=== PATIENT | female | born 1940 | race African-American/Black ===

== ENCOUNTER 2017-11-23 13:37 | Inpatient (IN) | payer OTHER, BC ==
[~2017-11-23] VITALS: Ht 154.9 cm; Wt 76.7 kg
--- NOTE | ~2017-11-23 | EKG ---
[place] [address] [facility] [employer] [facility] [place] [address] ELECTROCARDIOGRAM REPORT Name: ROD PARRA Room #: 431-P ADM IN M.R.#: [id number] Admission: 11/23/17 Attend Phys: Haile Martel DO Discharge: Date of : 42 Report #: [id number] THIS REPORT FOR: //name// [facility] ED Test Date: 2017-11-23 Test Time: 14:13:54 Pat Name: ROD PARRA Department: Room: 431 Gender: F Server Manager: MIGEL : 1940 Requested By: Avani Mckee Order Number: [id number] MD: Ousmane June Measurements Intervals [place] Rate: 93 P: 37 WY: 177 QRS: -44 QRSD: 95 T: 23 QT: 358 QTc: 446 Interpretive Statements Sinus rhythm Inferior infarct, old Poor R wave progression Compared to ECG 11/19/2015 20:08:52 No significant change was found Electronically Signed On 11-24-2017 9:41:32 CDT by Ousmane June [email or web address] <ELECTRONICALLY SIGNED> By: Ousmane June MD, [facility] 11/24/17 0941 141 141 Ousmane June MD, [facility] /EPI
--- NOTE | ~2017-11-23 | HC ---
[facility] [place] [address] CONSULTATION Name: ROD PARRA Room #: 431-P ADM IN .R.#: [id number] Admission: 11/23/17 Attend Phys: Haile Martel DO Discharge: Date of : 42 Report #: [id number] THIS REPORT FOR: //name// CC: Haile JACOBO PCP DATE OF SERVICE: 11/23/2017 REFERRING PROVIDER: Haile Martel DO. REASON FOR CONSULT: Abdominal pain. HISTORY OF PRESENT ILLNESS: The patient is a 77-year-old -[place] Citizen female who presented with abdominal pain, nausea, mid back pain and fevers to 102 degrees that all began around 4:00 a.m. this morning. Upon further questioning, the patient states that her abdominal pain really began yesterday and was associated with nausea. She does have a past history of atrial fibrillation for which she is on Xarelto, having taken her most recent dose last evening around midnight. Workup in the emergency room in the form of laboratories and a CT scan of the abdomen and pelvis was performed and she does have a left shift with a normal white blood cell count showing 89% neutrophils as well as showing elevated liver function enzymes with a bilirubin of 2.8, AST of 380 and ALT of 288. Her lipase is normal at 373. Her CT scan shows no acute process. The patient is therefore being admitted for abdominal pain and elevated liver function enzymes with concerns for biliary obstruction and I am asked to evaluate. PAST MEDICAL HISTORY: Atrial fibrillation, chronic back and left hip pain, and hypothyroidism. HOME MEDICATIONS: Xarelto, Synthroid, Percocet, Bumex and Ambien. ALLERGIES: No known drug allergies. SOCIAL HISTORY: The patient does not utilize tobacco, alcohol or illicit drugs. FAMILY HISTORY: Reviewed and noncontributory. REVIEW OF SYSTEMS: GENERAL: The patient states positive fevers and chills. HEENT: No change in vision, change in hearing. NECK: No swelling or difficulty swallowing. HEART: No chest pain or palpitations. LUNGS: No cough or shortness of breath. ABDOMEN: Abdominal pain with nausea, but no vomiting. GENITOURINARY: No dysuria or hematuria. [facility] [address] [place] [address] CONSULTATION Name: ROD PARRA Room #: 431-P [facility] IN .R.#: [id number] Admission: 11/23/17 Attend Phys: Haile Martel DO Discharge: Date of : 42 Report #: [id number] ENDOCRINE: No polyuria, polydipsia. HEMATOLOGIC: No history of bleeding or easy bruising. EXTREMITIES: No history weakness or limited range of motion. NEUROLOGIC: No history of syncope or near syncopal episodes. SKIN AND INTEGUMENT: No history of abnormal lesions or moles. PSYCHIATRIC: No history of anxiety or depression. PHYSICAL EXAMINATION: VITAL SIGNS: Temperature 37.2 down from 38.1 upon admission, pulse 98, respirations 18, blood pressure 168/86. GENERAL: She is alert, in no acute distress. HEENT: Normocephalic, atraumatic. Pupils are equal, round, reactive to light. NECK: Supple, without lymphadenopathy. Trachea midline. HEART: Tachycardic, but regular rhythm. LUNGS: Clear to auscultation bilaterally. ABDOMEN: Soft, nondistended. She is tender to palpation in the right upper quadrant and epigastrium without significant guarding, rebound or peritoneal signs or symptoms. GENITOURINARY: Normal external female genitalia. EXTREMITIES: No clubbing, cyanosis or edema. NEUROLOGIC: Cranial nerves 2-12 are grossly intact. PSYCHIATRIC: Normal mood and affect. SKIN AND INTEGUMENT: No abnormal lesions or moles. LABORATORY AND X-RAY DATA: CBC shows white blood cell count of 8800, hemoglobin 13.4, platelets 263,000. She does have a left shift of 89% neutrophils. Her creatinine is normal at 1.1, but her liver function enzymes are markedly elevated with a bilirubin of 2.8, AST 380, ALT 288, alkaline phosphatase 135 and a lipase is normal at 373. Her lactic acid is normal at 1.7 as well and her troponins are negative. Urinalysis is negative. CT scan of the abdomen and pelvis as per HPI shows no acute inflammatory process intraabdominally. ASSESSMENT AND PLAN: A 77-year-old -[place] Citizen female with elevated liver function enzymes, abdominal pain and mid back pain that began at 4:00 a.m. this morning after having nonspecific abdominal pain all day yesterday. On workup, her CT scan shows no acute intra-abdominal process including no ductal dilatation. I will obtain an ultrasound of the abdomen at this time as it is more specific for gallbladder disease and biliary dilatation and will ask for a GI consult as the patient may necessitate an ERCP at some point as I suspect she likely passed a stone and this may be early in the overall course of cholangitis. The patient did take Xarelto last evening and I recommend holding this until we have completed our workup and any interventions necessary. I will also order an MRCP at this time. [address] [address] CONSULTATION Name: ROD PARRA Room #: 431-P ADM IN M.R.#: [id number] Admission: 11/23/17 Attend Phys: Haile Martel DO Discharge: Date of : 42 Report #: [id number] I sincerely appreciate this consult. I will follow closely and leave any further recommendations in the patient's chart as appropriate. <ELECTRONICALLY SIGNED> By: Laisha Ernandez MD, FACS 11/24/17 0743 1710 1937 Laisha Ernandez MD, FACS /nt
--- NOTE | ~2017-11-23 | O ---
[facility] [place] [facility] [place] [address] OPERATIVE REPORT Name: ROD PARRA Room #: 431-P [facility] IN ..#: [id number] Admission: 11/23/17 Attend Phys: Haile Martel DO Discharge: Date of : 42 Report #: [id number] THIS REPORT FOR: //name// CC: Haile Martel NO PCP DATE OF SERVICE: 11/26/2017 PREOPERATIVE DIAGNOSES: 1. Acute cholecystitis. 2. Cholelithiasis. 3. Recent choledocholithiasis, now status post endoscopic retrograde cholangiopancreatography with sphincterotomy. POSTOPERATIVE DIAGNOSES: 1. Acute cholecystitis. 2. Cholelithiasis. 3. Recent choledocholithiasis, now status post endoscopic retrograde cholangiopancreatography with sphincterotomy. 4. Incarcerated umbilical hernia. PROCEDURES PERFORMED: 1. Laparoscopic cholecystectomy with intraoperative cholangiogram. 2. Laparoscopic reduction with primary suture repair of an incarcerated umbilical hernia defect. SURGEON: Laisha Ernandez M.D. CIVIL SERVICE CLERK: Joshua Paul M.D. ANESTHESIA: General endotracheal anesthesia. ESTIMATED BLOOD LOSS: Minimal (less than 5 mL). COMPLICATIONS: None appreciated. SPECIMENS: Gallbladder to pathology. INDICATIONS: The patient is a 77-year-old -[place] female who was recently admitted with severe abdominal pain and nausea, where she was found to have a markedly elevated bilirubin as well as an MRCP showing a distal common bile duct filling defect and ultrasound showing acute cholecystitis. The patient underwent ERCP with decompression of her biliary tree and her bilirubin came down to a normal level of 1.0. The patient did have mild post-ERCP pancreatitis with a lipase of about 800 and epigastric pain, which has completely resolved with normalization of her lipase today. As such, indication [facility] [address] [place] [address] OPERATIVE REPORT Name: AIDAROD Oskar Room #: 431-P [facility] IN ..#: [id number] Admission: 11/23/17 Attend Phys: Haile Martel DO Discharge: Date of : 42 Report #: [id number] was for laparoscopic cholecystectomy for definitive surgical management with intraoperative findings of an incarcerated umbilical hernia requiring suture repair as well. DESCRIPTION OF PROCEDURE: After explaining the risks, benefits and alternatives of the procedure with the patient in detail in the preoperative holding area and obtaining written consent, the patient was brought to the operating room and placed supine on the operating room table. After conducting a thorough timeout procedure verifying correct patient and procedure, the patient was given general endotracheal anesthesia. Once adequate anesthesia was attained, her SCDs were hooked up to pneumatic compression device. She was given a preoperative dose of antibiotics in line with the SCIP protocol. The patient's abdomen was prepped and draped in standard surgical sterile fashion. A 5 mL of 0.5% Marcaine with epinephrine were used to anesthetize the skin in the supraumbilical location. A #15 bladed scalpel was used to create a 1 cm transverse skin incision at this location. A 11 mm Visiport was placed over 0 degree 5 mm laparoscope and was introduced through this incision site. Once intra-abdominal placement was verified visually, the obturator for the trocar and laparoscope were both removed and the abdomen was insufflated to 15 mmHg using carbon dioxide gas. The laparoscope was changed to a 10 mm 30-degree laparoscope, which was reintroduced through this trocar. The entire abdomen was evaluated to ensure no injury upon entry. We now placed the patient in steep reverse Trendelenburg with right side elevated and I placed three additional 5 mm ports. One was placed in subxiphoid location and two were placed along the patient's right subcostal margin. All three additional ports were placed under direct vision after anesthetizing the skin at each location with 5 mL of 0.5% Marcaine with epinephrine and I created appropriately sized skin nicks using a #15 bladed scalpel. The patient had a considerable amount of bile-stained ascites, which were suctioned out with a suction examination proctor device. Using the inferolateral most port along the patient's right flank, the fundus of the gallbladder was grasped and retracted cephalad. Careful tedious dissection was now undertaken down around the cholecystocystic junction using combination of Harmonic scalpel and [place] dissector. Once I had attained a critical view, namely the cystic duct emanating from the infundibulum of the gallbladder and coursing the common bile duct as well as cystic artery running at the surface of the gallbladder and I had created a window behind each, I transected the cystic artery nearest to the gallbladder side using Harmonic scalpel for long-term hemostasis. A single clip was now placed along the cystic duct nearest to the gallbladder side and a small ductotomy was made just distal to this clip using EndoShears. This ductotomy was cannulated using the taut cholangiocatheter setup and an intraoperative cholangiogram was obtained. We had prompt opacification of a tortuous cystic duct with both intra and extrahepatic bile ducts becoming opacified. There was antegrade flow of contrast in the duodenum with no evidence of filling defects or obstruction. The cholangiocatheter setup was now removed. Three clips were placed along the cystic duct nearest to the common bile duct side and it was transected above these clips using Harmonic scalpel to [facility] [address] [place] [address] OPERATIVE REPORT Name: ROD PARRA Room #: 431-P [facility] IN ..#: [id number] Admission: 11/23/17 Attend Phys: Haile Martel DO Discharge: Date of : 42 Report #: [id number] help seal the end of the duct closed. Further retraction at the infundibulum of the gallbladder in cephalad direction allowed me to elevate the gallbladder off the liver bed using a combination of Harmonic scalpel and hook electrocautery. Once completely detached, the laparoscope was removed, changed to a 5-mm 30-degree laparoscope, which was reintroduced through the right midclavicular 5 mm port. The EndoCatch bag was placed in the supraumbilical trocar and the specimen was placed within it under direct vision. Pursestring suture was drawn and specimen was removed from the abdomen under direct vision. At this juncture, we saw incarcerated omentum contained within the umbilical hernia inferior to my supraumbilical trocar. This was reduced with Harmonic scalpel as well. Now that the specimen had been delivered out of the abdomen, I used the Dinesh-Mishel suture passer device and a [address] a xezhyp-ip-foffm fascial closing suture around the hernia defect which incorporated the trocar fascial incision as well. This was tagged with a hemostat and trocars were placed under direct vision. The laparoscope was placed back in the supraumbilical trocar and the gallbladder fossa was evaluated. We had complete hemostasis, but as the patient's liver bed was slightly friable and she does take long-term anticoagulation, I did elect to place Wolfgang in the bed of the gallbladder fossa for long-term hemostasis. One final evaluation of the intra-abdominal domain showed no further evidence of pathology. The laparoscope was placed back in the right upper quadrant trocar and proceeded to tie down the supraumbilical 0 PDS suture under direct vision after reducing insufflation pressure to 5 mmHg to ensure I did not catch a loop of bowel or omentum in the suture repair. The abdomen was fully desufflated. All remaining trocars were removed under direct vision. A 4-0 Monocryl was used in a standard subcuticular fashion for all skin incisions and Dermabond glue was applied to all skin wounds. At the end of the procedure, all instrument, needle and sponge counts were correct. The patient tolerated the procedure without incident, was awakened in the operating room and transitioned to the recovery room in stable condition with no apparent complications. <ELECTRONICALLY SIGNED> By: Laisha Ernandez MD, FACS 11/27/17 0931 1621 1720 Laisha Ernandez MD, FACS /nt
--- NOTE | ~2017-11-23 | S ---
[facility] [place] [address] SURGICAL PATH RPT PROCEDURE Name: ELLE PARRA Room #: 431-P ADM IN M.R.#: [id number] Admission: 11/23/17 Date of : 42 Discharge: Report #: [id number] Path Case #: [id number] PATHOLOGY REPORT COLLECTION DATE: 11/26/2017 RECEIVED DATE: 11/26/2017 SUBMITTING PHYS: Dr. Laisha Ernandez OTHER PHYS: Dr. Haile Martel SPECIMEN(S) RECEIVED: A.Gallbladder * * * * * * * * * * * * FINAL DIAGNOSIS: "Gallbladder", cholecystectomy: - Acute necrotizing cholecystitis. - Cholelithiasis. (CLW:suzan; 11/27/2017) PATHOLOGIST: Sharon Guillory M.D. REPORT ELECTRONICALLY SIGNED BY: Sharon Guillory M.D. DATE/TIME: 11/27/2017 17:35 * * * * * * * * * * * * GROSS PATHOLOGY: Received in formalin labeled "Elle Parra, gallbladder," is a 11.0 x 4.9 x 2.6 cm, previously opened gallbladder with light martinez, wrinkled serosal surfaces. Opening the gallbladder reveals dark martinez, velvety mucosa and an average wall thickness of 0.2 cm. Calculi are present, measuring 0.4 cm in maximum dimension, possessing a dark black sludgy appearance, and feeling friable to the touch. No masses are noted grossly. Generation Technologist sections from the body and fundus are submitted along with the proximal margin in cassette A1. (TSD; 11/26/2017) CLINICAL HISTORY: Pre-OP DX: Pancreatitis Post-OP DX: Same plus umbilical hernia INITIAL CPT CODE(S): A; 53134 Professional services performed by [facility] at [facility] [address] , [place] [address] [facility] [address] [place] [address] SURGICAL PATH RPT PROCEDURE Name: ELLE PARRA Room #: 431-P ADM IN M.R.#: [id number] Admission: 11/23/17 Date of : 42 Discharge: Report #: [id number] Path Case #: [id number] Technical services performed by [facility] at [address] [place] [address], [facility] [address] [place] [address]. [facility] [address] [place] [address] PHONE: [phone] DIRECTOR: Bib Shields M.D. * * * END OF REPORT * * *
--- NOTE | ~2017-11-23 | P ---
[facility] [place] [address] PROCEDURE REPORT Name: ROD PARRA Room #: 431-P [facility] IN ..#: [id number] Admission: 11/23/17 Attend Phys: Haile Martel DO Discharge: Date of : 42 Report #: [id number] THIS REPORT FOR: //name// CC: Haile Ernandez MD NO PCP BRIEF HISTORY: The patient is a 77-year-old woman who presented with evidence of gallstones, also rising liver function studies with bilirubin up over 5 as well as rising white count, fever, and tachycardia. MRCP reveals a dilated duct and evidence of a distal common duct stone. PREOPERATIVE DIAGNOSES: Choledocholithiasis with cholangitis. POSTOPERATIVE DIAGNOSES: Choledocholithiasis, sludge and debris with cholangitis. MEDICATIONS: Intubation with general anesthesia. SPECIMEN: None. ESTIMATED BLOOD LOSS: None. PROCEDURE: ERCP with endoscopic sphincterotomy and balloon sweep and basket sweep of the common bile duct. FINDINGS: Prior to induction of general anesthesia, the procedure of ERCP, sphincterotomy, and stone extraction was discussed with the patient as well as all potential risks, benefits, and complications. She indicates she understands and desires to proceed. She was taken to the operating room and induced with general anesthesia and placed in the prone position. Subsequently, the Fuji side-viewing endoscope was inserted in cervical esophagus, advanced through the esophagus, stomach, across the pylorus, and duodenum, the loop of scope was withdrawn and the papilla was identified. The papilla appeared very normal. There was a small amount of yellow bile. The papilla was cannulated and advanced in the common bile duct. However, at the initial filling small amount of contrast in the pancreatic duct, that was only partially filled and we stopped injection. We removed the catheter and reinserted and advanced it deep into the extrahepatic ducts. No further filling of the pancreatic duct was encountered. Injection of contrast revealed a dilated duct, both common hepatic and common bile ducts. There was also noted to be flow of contrast into the cystic duct and gallbladder filled with stones. There was limited filling of the central intrahepatic ducts because of flow into the gallbladder. Obvious stone could not be seen, although one was reported on MRCP. Subsequently, a sphincterotomy was done without bleeding. We then used a 15-mm balloon and pulled it through on several [facility] [address] [place] [address] PROCEDURE REPORT Name: ROD PARRA Room #: 431-P [facility] IN M.R.#: [id number] Admission: 11/23/17 Attend Phys: Haile Martel DO Discharge: Date of : 42 Report #: [id number] and mostly clear bile came out, but some clumps of mucousy and whitish material, which looked somewhat purulent, were pulled out of the duct. No stones were retrieved. We then used a balloon to tamponade the bile duct above the cystic duct and there was filling in the central intra-hepatics which were not dilated. The common hepatic and common bile duct were dilated using balloon tamponade, we were able to fill the duct and not demonstrate any additional stones. Due to the concerns of a retained stone after multiple balloon sweeps, the balloon catheter was withdrawn and we advanced a 2-cm basket and made multiple sweeps through duct and we did not engage any stones or whatsoever. It was noted that some sludge material as well as mucus and purulent material came from the duct, but a large stone was not seen. It was felt the duct was clear and draining well. The scope was withdrawn. The patient tolerated the procedure well. DISPOSITION: ERCP with endoscopic sphincterotomy completed as described. Discussed with Dr. Ernandez, we will continue to monitor. She is to have cholecystectomy per Dr. Ernandez. <ELECTRONICALLY SIGNED> By: Gareth Matos MD 11/24/17 2032 1544 1826 Gareth Matos MD /nt
--- NOTE | ~2017-11-23 | HC ---
[facility] [place] [address] CONSULTATION Name: ROD PARRA Room #: 431-P [facility] IN ..#: [id number] Admission: 11/23/17 Attend Phys: Haile Martel DO Discharge: Date of : 42 Report #: [id number] THIS REPORT FOR: //name// CC: Haile JACOBO PCP DATE OF SERVICE: 11/24/2017 ATTENDING PHYSICIAN: Haile Martel DO. REASON FOR CONSULTATION: Bacteremia. Cholangitis. HISTORY OF PRESENT ILLNESS: A 77-year-old woman admitted through the Emergency Room with a history of abdominal pain and fevers. The patient tells me she has not been feeling well for a couple of weeks with some chronic back pain. Subsequently, the pain got bad enough and fever started that she needed to be evaluated in the Emergency Room. She is found to have elevation of bilirubin, abnormal liver function tests. Findings compatible with cholecystitis and possible acute cholangitis. She is on treatment with Zosyn. She may be slightly improving, wondering if her n.p.o. status will change anytime surely. PAST MEDICAL HISTORY: Left hip replacement in 2004, right total knee replacement, atrial fibrillation. Chronic back pain. DRUG ALLERGIES: None listed. MEDICATIONS: Zosyn 3.375 grams IV every 8 hours, zolpidem 10 mg at bedtime, enoxaparin 40 mg at bedtime, famotine 20 mg IV b.i.d., levothyroxine 25 mcg p.o. daily, polyethylene glycol 17 grams p.o. daily, sublingual nitroglycerin p.r.n., ondansetron IV p.r.n., fentanyl 50 mcg q.3h. p.r.n., potassium chloride supplementation per protocol. SOCIAL HISTORY: Five children. No tobacco or alcohol. Works at a local organization. REVIEW OF SYSTEMS: See H and P and as above. PHYSICAL EXAMINATION: GENERAL: A well-developed, overweight woman, not toxic looking. VITAL SIGNS: Temperature maximum 101.5, pulse 95, respirations 17, BP 112/50, O2 saturation 98% on room air. HEENMT: Head normocephalic, atraumatic. Pupils reactive, arcus cornealis, conjunctival icterus. Mouth: Upper and lower plates. NECK: Supple. LUNGS: Decreased breath sounds. [address] [address] CONSULTATION Name: ROD PARRA Room #: 431-P [facility] IN M.R.#: [id number] Admission: 11/23/17 Attend Phys: Haile Martel DO Discharge: Date of : 42 Report #: [id number] HEART: S1, S2. No gallop. ABDOMEN: Tenderness right upper abdominal quadrant. No palpable masses or megaly. PELVIC AND RECTAL: Deferred. EXTREMITIES: Surgical scar right knee from total knee replacement. No calf tenderness or pretibial edema. NEUROLOGIC: Grossly within normal limits. LABORATORY DATA: Sodium 141, potassium 4.3, CO2 22, creatinine 1.3. SGOT on admission 380, today 149, total bilirubin 2.8 on admission and 5.5 today. Magnesium 1.6. SGPT 288 on admission, 187 today. Lipase elevated 827, albumin low at 2.4 g/dL, lactic acid normal. Her white blood cell count 15,300, hemoglobin 11.9 g/dL, platelets 200,000. White blood cell count differential revealed 91% segmented neutrophils, 3% bands. Urinalysis negative. MICROBIOLOGY DATA: Blood cultures from 11/23/2017, one of the samples revealed gram-negative rods and other blood sample revealed gram-positive cocci. RADIOLOGY EVALUATION: Chest x-ray, some cardiomegaly, venous congestion, left basilar infiltration. Abdominal ultrasound revealed gallbladder distention with gallbladder wall thickening with sludge and nonshadowing and with some sludge. Findings compatible with cholecystitis. CT scan of abdomen and pelvis revealed no inflammatory mass, bowel obstruction. MRCP revealed gallstones with gallbladder wall thickening and pericholecystic fluid consistent with cholecystitis and possibly a filling defect in the mildly prominent common bile duct. ASSESSMENT: 1. Acute cholangitis, cholecystitis. 2. Bacteremia with Gram-positive cocci and gram-negative rods. 3. Abnormal liver function tests secondary to above. 4. Left basilar pulmonary infiltrate. 5. Cardiomegaly. 6. Development of thrombocytopenia. SUGGESTIONS: The patient appears to be slightly better today. Consequently recommend continuation of treatment with Zosyn that will cover enteric gram-negative organisms as well as Enterococcus, which I suspect may be the germ isolated and single positive blood culture. Obviously, should we be dealing with MRSA, we will add vancomycin. [address] [address] CONSULTATION Name: ROD PARRA Room #: 431-P [facility] IN M..#: [id number] Admission: 11/23/17 Attend Phys: Haile Martel, Discharge: Date of : 42 Report #: [id number] Martel, thank you for requesting my suggestions in the care of your patient. <ELECTRONICALLY SIGNED> By: Riley Fleming MD 11/24/17 1507 1238 1441 Riley Fleming MD /nt
[~2017-11-23 13:37] MED LIST: AMBIENCR PO; ASPIRIN325; BUMEX2 MG PO; LASIX 20 MG TAB20 MG PO; LEVOTHYROXIN0.025 MG PO; LISINOPRIL10 MG PO; PERCOCET PO; PLAVIX 75 MG TA75 MG PO; POTASSIUM CHLO10 ME1 PO; VICODIN; XARELTO10 MG PO
[2017-11-23 13:39] VITALS: BP 144/68
[2017-11-23 14:29] LABS: ABSOLUTE NEUTROPHILS 7.8 thou/uL (1.4-8.2); BASOPHILS 0.4 % (0.0-2.0); EOSINOPHILS 0.1 % (0.0-3.0); HEMATOCRIT 39.9 % (37.0-47.0); HEMOGLOBIN 13.4 gm/dL (12.0-15.0); LYMPHOCYTES 5.9 % (24.0-44.0); MCH 29.7 pg (26.0-34.0); MCHC 33.7 g/dL (28.0-37.0); MCV 88.2 fL (80.0-100.0); MONOCYTES 4.8 % (1.0-8.0); PLATELET COUNT 263 thou/uL (150-400); POLYS 88.8 % (36.0-66.0); RBC 4.53 mil/uL (4.20-5.00); RDW 16.5 % (10.5-14.5); WBC 8.8 thou/uL (4.0-11.0)
[2017-11-23 14:52] LABS: CALCIUM 9.1 mg/dL (8.5-10.1); CREATININE 1.1 mg/dL (0.6-1.0); POTASSIUM 3.3 mmol/L (3.5-5.1)
[2017-11-23 15:03] LABS: ALBUMIN 3.2 g/dL (3.4-5.0); TOTAL BILIRUBIN 2.8 mg/dL (<0.1-1.0); TOTAL PROTEIN 7.9 g/dL (6.4-8.2)
[2017-11-23 16:12] LABS: URINE BILIRUBIN NEGATIVE (Negative); URINE BLOOD NEGATIVE (Negative); URINE CLARITY CLEAR; URINE COLOR YELLOW; URINE GLUCOSE-RANDOM* NEGATIVE (Negative); URINE KETONES NEGATIVE (Negative); URINE LEUKOCYTES NEGATIVE (Negative); URINE NITRITE NEGATIVE (Negative); URINE PROTEIN (DIPSTICK) NEGATIVE (Negative); URINE SPECIFIC GRAVITY <= 1.005 (1.005-1.035); URINE UROBILINOGEN 0.2 E.U./dl (0.2-1.0)
[2017-11-23 18:12] VITALS: BP 134/69
[2017-11-23 19:39] VITALS: BP 129/70
[2017-11-24 04:06] LABS: GLYCOHEMOGLOBIN (HGB A1C) 5.5 % (4.8-5.6)
[2017-11-24 05:02] VITALS: BP 98/55
[2017-11-24 06:53] LABS: BASOPHILS 0.1 % (0.0-2.0); HEMATOCRIT 35.6 % (37.0-47.0); HEMOGLOBIN 11.9 gm/dL (12.0-15.0); LYMPHOCYTES 3.6 % (24.0-44.0); MCH 29.3 pg (26.0-34.0); MCHC 33.4 g/dL (28.0-37.0); MCV 87.5 fL (80.0-100.0); MONOCYTES 5.3 % (1.0-8.0); PLATELET COUNT 200 thou/uL (150-400); RBC 4.07 mil/uL (4.20-5.00); RDW 16.1 % (10.5-14.5); WBC 15.3 thou/uL (4.0-11.0)
[2017-11-24 07:11] LABS: ALBUMIN 2.4 g/dL (3.4-5.0); CALCIUM 8.4 mg/dL (8.5-10.1); CREATININE 1.3 mg/dL (0.6-1.0); MAGNESIUM 1.6 mg/dL (1.8-2.4); TOTAL BILIRUBIN 5.5 mg/dL (<0.1-1.0)
[2017-11-24 07:13] LABS: POTASSIUM 4.3 mmol/L (3.5-5.1)
[2017-11-24 07:45] VITALS: BP 106/68
[2017-11-24 10:20] VITALS: BP 112/50
[2017-11-24 18:00] VITALS: BP 111/61
[2017-11-24 21:32] VITALS: BP 115/63
[2017-11-25 04:30] VITALS: BP 157/88
[2017-11-25 05:52] LABS: ABSOLUTE NEUTROPHILS 10.8 thou/uL (1.4-8.2); BASOPHILS 0.2 % (0.0-2.0); HEMATOCRIT 34.3 % (37.0-47.0); HEMOGLOBIN 11.3 gm/dL (12.0-15.0); LYMPHOCYTES 4.3 % (24.0-44.0); MCH 29.3 pg (26.0-34.0); MCV 88.8 fL (80.0-100.0); MONOCYTES 3.6 % (1.0-8.0); PLATELET COUNT 174 thou/uL (150-400); POLYS 91.9 % (36.0-66.0); RBC 3.86 mil/uL (4.20-5.00); RDW 16.7 % (10.5-14.5); WBC 11.8 thou/uL (4.0-11.0)
[2017-11-25 06:02] LABS: INR 1.1; PROTIME 11.4 Seconds (9.3-11.4)
[2017-11-25 06:07] LABS: ALBUMIN 2.3 g/dL (3.4-5.0); CALCIUM 8.6 mg/dL (8.5-10.1); CREATININE 1.3 mg/dL (0.6-1.0); MAGNESIUM 1.9 mg/dL (1.8-2.4); PHOSPHORUS 3.3 mg/dL (2.5-4.9); TOTAL PROTEIN 6.4 g/dL (6.4-8.2)
[2017-11-25 08:27] VITALS: BP 130/65
[2017-11-25 20:30] VITALS: BP 132/80
[2017-11-26 05:30] VITALS: BP 148/72
[2017-11-26 06:01] LABS: HEMATOCRIT 32.3 % (37.0-47.0); HEMOGLOBIN 10.8 gm/dL (12.0-15.0); MCH 29.4 pg (26.0-34.0); MCHC 33.5 g/dL (28.0-37.0); MCV 87.8 fL (80.0-100.0); RBC 3.68 mil/uL (4.20-5.00); RDW 16.2 % (10.5-14.5)
[2017-11-26 06:27] LABS: ALBUMIN 2.1 g/dL (3.4-5.0); CALCIUM 8.3 mg/dL (8.5-10.1); CREATININE 1.1 mg/dL (0.6-1.0); POTASSIUM 3.7 mmol/L (3.5-5.1); TOTAL PROTEIN 6.2 g/dL (6.4-8.2)
[2017-11-26 08:19] VITALS: BP 145/77
[2017-11-26 12:58] VITALS: BP 140/70
[2017-11-26 16:15] VITALS: BP 160/75
[2017-11-26 20:22] VITALS: BP 121/60
[2017-11-27 03:40] VITALS: BP 139/81
[2017-11-27 05:31] LABS: ABSOLUTE NEUTROPHILS 7.9 thou/uL (1.4-8.2); BASOPHILS 0.3 % (0.0-2.0); HEMATOCRIT 31.9 % (37.0-47.0); LYMPHOCYTES 6.4 % (24.0-44.0); MCHC 34.3 g/dL (28.0-37.0); MCV 87.2 fL (80.0-100.0); MONOCYTES 4.9 % (1.0-8.0); PLATELET COUNT 200 thou/uL (150-400); POLYS 88.4 % (36.0-66.0); RBC 3.66 mil/uL (4.20-5.00); RDW 16.2 % (10.5-14.5); WBC 8.9 thou/uL (4.0-11.0)
[2017-11-27 05:47] LABS: CALCIUM 8.2 mg/dL (8.5-10.1); CREATININE 1.1 mg/dL (0.6-1.0); POTASSIUM 4.1 mmol/L (3.5-5.1)
[2017-11-27 07:13] VITALS: BP 176/86
[2017-11-27 15:41] VITALS: BP 126/74
[2017-11-27 20:00] VITALS: BP 149/86
[2017-11-28 04:36] VITALS: BP 136/66
[2017-11-28 04:46] LABS: ALBUMIN 2.1 g/dL (3.4-5.0); CALCIUM 8.4 mg/dL (8.5-10.1); CREATININE 1.2 mg/dL (0.6-1.0); POTASSIUM 3.6 mmol/L (3.5-5.1); TOTAL BILIRUBIN 0.5 mg/dL (<0.1-1.0); TOTAL PROTEIN 6.4 g/dL (6.4-8.2)
[2017-11-28 07:35] VITALS: BP 136/68
[2017-11-28 08:35] LABS: AMP/METHAMP Negative (Negative); BARBITURATES Negative (Negative); BENZODIAZEPINES Negative (Negative); COCAINE Negative (Negative); METHADONE Negative (Negative); OPIATES POSITIVE (Negative); PCP Negative (Negative)
[2017-11-28 13:03] VITALS: BP 139/79
[2017-11-28 17:56] VITALS: BP 149/72
[2017-11-28 19:11] VITALS: BP 107/66
[2017-11-29 05:51] LABS: CALCIUM 8.5 mg/dL (8.5-10.1); CREATININE 1.1 mg/dL (0.6-1.0); POTASSIUM 3.4 mmol/L (3.5-5.1)
[2017-11-29 06:00] LABS: MONOCYTES 9.4 % (1.0-8.0)
[2017-11-29 06:02] LABS: ABSOLUTE NEUTROPHILS 7.7 thou/uL (1.4-8.2); BASOPHILS 0.4 % (0.0-2.0); HEMATOCRIT 30.9 % (37.0-47.0); HEMOGLOBIN 10.5 gm/dL (12.0-15.0); LYMPHOCYTES 15.1 % (24.0-44.0); MCH 29.5 pg (26.0-34.0); PLATELET COUNT 271 thou/uL (150-400); POLYS 74.1 % (36.0-66.0); RBC 3.55 mil/uL (4.20-5.00); RDW 16.4 % (10.5-14.5); WBC 10.4 thou/uL (4.0-11.0)
[2017-11-29 08:49] VITALS: BP 139/62
[2017-11-29 08:50] VITALS: BP 139/90
[2017-11-29 20:00] VITALS: BP 163/76
[2017-11-30 01:35] VITALS: BP 162/81
[2017-11-30 07:50] VITALS: BP 149/67
[2017-11-30 08:00] LABS: ABSOLUTE NEUTROPHILS 6.5 thou/uL (1.4-8.2); BASOPHILS 0.9 % (0.0-2.0); EOSINOPHILS 1.7 % (0.0-3.0); HEMATOCRIT 32.4 % (37.0-47.0); MCH 29.4 pg (26.0-34.0); MCV 86.5 fL (80.0-100.0); MONOCYTES 5.8 % (1.0-8.0); PLATELET COUNT 333 thou/uL (150-400); POLYS 74.6 % (36.0-66.0); RBC 3.74 mil/uL (4.20-5.00); RDW 16.5 % (10.5-14.5); WBC 8.7 thou/uL (4.0-11.0)
[2017-11-30 08:07] LABS: CALCIUM 8.6 mg/dL (8.5-10.1); POTASSIUM 3.5 mmol/L (3.5-5.1)
[2017-11-30] MEDS ORDERED: AUGMENTIN 875-1 EACH PO (09:22)
[2017-11-30] MEDS ORDERED: HYDROCODON-ACE1 EAC7 PO (09:22)
[2017-11-30 10:47] VITALS: BP 149/67
== END 2017-11-30 14:40 | disposition home or self-care (01) | DRG 853 ==
LOC: ER 13:37 → 4E 16:34 → EROBS 16:34 → 4E 18:51 → SICU 11-28 13:39
PROVIDERS: Family Medicine; Internal Medicine Gastroenterology; Nurse Practitioner; Nurse Practitioner Acute Care; Nurse Practitioner Family; Registered Nurse; Surgery
PROC: 0FC98ZZ Extirpation of Matter from Common Bile Duct, Via Natural or Artificial Opening Endoscopic (ICD-10-PCS; principal; 2017-11-24)
PROC: 0F798ZZ Dilation of Common Bile Duct, Via Natural or Artificial Opening Endoscopic (ICD-10-PCS; principal; 2017-11-24)
PROC: 0WQF4ZZ Repair Abdominal Wall, Percutaneous Endoscopic Approach (ICD-10-PCS; 2017-11-26)
PROC: 0FT44ZZ Resection of Gallbladder, Percutaneous Endoscopic Approach (ICD-10-PCS; 2017-11-26)
PROC: BF0C1ZZ Plain Radiography of Hepatobiliary System, All using Low Osmolar Contrast (ICD-10-PCS; 2017-11-26)
DX: A41.9 Sepsis, unspecified organism (principal); E43 Unspecified severe protein-calorie malnutrition; K85.10 Biliary acute pancreatitis without necrosis or infection; N17.9 Acute kidney failure, unspecified; K42.0 Umbilical hernia with obstruction, without gangrene; K80.00 Calculus of gallbladder with acute cholecystitis without obstruction; Z96.642 Presence of left artificial hip joint; I48.91 Unspecified atrial fibrillation; G89.29 Other chronic pain; M54.9 Dorsalgia, unspecified; E80.6 Other disorders of bilirubin metabolism; E03.9 Hypothyroidism, unspecified; Z96.651 Presence of right artificial knee joint; D69.6 Thrombocytopenia, unspecified; E87.6 Hypokalemia; Z60.2 Problems related to living alone; K40.90 Unilateral inguinal hernia, without obstruction or gangrene, not specified as recurrent; K43.2 Incisional hernia without obstruction or gangrene; Z79.899 Other long term (current) drug therapy; Z68.31 Body mass index [BMI] 31.0-31.9, adult
CPT/HCPCS: 10183; 15002; 50010; 50101; 50249; 50411; 50555; 50558; 50900; 50962; 51489; 51975; 52265; 52266; 53307; 54022; 54118; 55245; 55317; 56462; 56525; 56526; 62110; 62900; 70005

== ENCOUNTER 2018-05-12 12:14 | Emergency (ER) | payer OTHER, BC ==
[~2018-05-12] VITALS: Ht 154.9 cm; Wt 66.7 kg
[~2018-05-12 12:14] MED LIST changes: +AUGMENTIN 875-1 EACH PO; +HYDROCODON-ACE1 EAC7 PO
[2018-05-12] MEDS ORDERED: PERCOCET 10-321 EACH PO (12:17)
[2018-05-12 12:46] LABS: HEMATOCRIT 39.1 % (37.0-47.0); HEMOGLOBIN 13.1 gm/dL (12.0-15.0); MCH 30.1 pg (26.0-34.0); MCHC 33.4 g/dL (28.0-37.0); MCV 89.9 fL (80.0-100.0); RBC 4.35 mil/uL (4.20-5.00); WBC 6.4 thou/uL (4.0-11.0)
[2018-05-12 12:55] LABS: CALCIUM 9.2 mg/dL (8.5-10.1); CREATININE 1.1 mg/dL (0.6-1.0); POTASSIUM 3.7 mmol/L (3.5-5.1)
[2018-05-12] MEDS ORDERED: NORCO 10-325 T1 EACH PO (16:18)
== END 2018-05-12 16:27 | disposition home or self-care (01) ==
LOC: ER 12:14
PROVIDERS: Physician Assistant
DX: G89.29 Other chronic pain (principal); M54.5 Low back pain; M25.512 Pain in left shoulder; M25.561 Pain in right knee; W01.0XXA Fall on same level from slipping, tripping and stumbling without subsequent striking against object, initial encounter; Y93.89 Activity, other specified; Y92.89 Other specified places as the place of occurrence of the external cause; Y99.8 Other external cause status; I48.91 Unspecified atrial fibrillation; E03.9 Hypothyroidism, unspecified; Z96.651 Presence of right artificial knee joint; Z96.642 Presence of left artificial hip joint

== ENCOUNTER 2018-05-20 13:46 | Inpatient (IN) | payer OTHER, BC ==
[~2018-05-20] VITALS: Ht 154.9 cm; Wt 71.2 kg
--- NOTE | ~2018-05-20 | H ---
[facility] [place] [address] HISTORY AND PHYSICAL Name: ROD PARRA Room #: 430-P ADM IN M.R.#: [id number] Admission: 05/20/18 Attend Phys: Peter Downs Discharge: Date of : 42 Report #: [id number] THIS REPORT FOR: //name// CC: Derick HARDY unknown DATE OF SERVICE: 05/20/2018 CHIEF COMPLAINT: Weakness. HISTORY OF PRESENT ILLNESS: The patient is a 77-year-old female who presented to the Emergency Room with 3 falls over the last week, said she just feels weak in her legs and had another episode last night and then the morning of presentation. She said it feels like her legs "gave out" underneath her when she walks. She normally uses a walker and cane at home, but she has had increasing weakness for now for about a week. PAST MEDICAL HISTORY: Atrial fibrillation, chronic back pain and hypothyroidism. She had a right knee replacement in 2017 and left hip replacement in 2004. PAST SURGICAL HISTORY: As above. FAMILY HISTORY: Noncontributory. SOCIAL HISTORY: She lives at home with her son. No chronic alcohol or tobacco use. ALLERGIES: None. MEDICATIONS: Hydrocodone, Xarelto, Levoxyl, Bumex, Percocet. REVIEW OF SYSTEMS: She denies headache, chest pain, shortness of breath, abdominal pain, nausea, vomiting, diarrhea, constipation, dysuria, syncope. OBJECTIVE: VITAL SIGNS: Temperature 37.4, pulse 83, respirations 16, blood pressure 110/62, O2 sat 100% on room air. GENERAL: She is awake and alert, in no distress. HEAD AND NECK: Unremarkable. LUNGS: Clear. HEART: Irregular. ABDOMEN: Soft, normoactive bowel sounds. EXTREMITIES: No edema. NEUROLOGIC: Cranial nerves intact. Speech is fluent. Motor strength 3/5 throughout. [facility] [address] [place] [address] HISTORY AND PHYSICAL Name: ROD PARRA Room #: 430-P [facility] IN [facility]#: [id number] Admission: 05/20/18 Attend Phys: Peter Downs Discharge: Date of : 42 Report #: [id number] LABORATORY DATA: White count was 12.6. Urinalysis had bacteria, white cells, leukocyte esterase, nitrite and blood. Chemistry was unremarkable and troponin. Urine culture is pending. CT head was negative. Chest x-ray was negative. ASSESSMENT: 1. Urinary tract infection. 2. Acute weakness due to the above. 3. Atrial fibrillation. 4. Chronic anticoagulation with Xarelto. PLAN: For now, we will continue Rocephin for antibiotic coverage pending her urine culture, therapy will be ordered. Hopefully, she can recover in order to return home, but could consider rehabilitation options if she is slow to progress. <ELECTRONICALLY SIGNED> By: Constantine Steinberg MD 05/21/18 1335 1122 1150 MD katiuska Roberts
--- NOTE | ~2018-05-20 | D ---
[facility] [place] [address] DISCHARGE SUMMARY Name: ROD PARRA Room #: 220-P [facility] IN M.R.#: [id number] Admission: 05/20/18 Attend Phys: Peter Downs Discharge: 05/24/18 Date of : 42 Report #: [id number] THIS REPORT FOR: //name// CC: Derick HARDY unknown FINAL DIAGNOSES: 1. Urinary tract infection. 2. Weakness due to the above. HOSPITAL COURSE: The patient was admitted with weakness and urinalysis consistent with infection. Her usual home medications were continued and she received IV antibiotics. Her urine culture revealed E. coli with oral antibiotic options. She worked with physical therapy and had no other medical complications during her stay. PHYSICAL EXAMINATION: On the day of discharge: GENERAL: She was awake, alert. VITAL SIGNS: Stable. LUNGS: Clear. HEART: Regular. ABDOMEN: Soft, normoactive bowel sounds. EXTREMITIES: Showed no edema. DISPOSITION: To be discharged to home with usual medications plus Ceftin 500 mg b.i.d. for 5 more days. Follow up with Dr. Marte in 2 weeks. Diet and activity as tolerated, home health and physical therapy. <ELECTRONICALLY SIGNED> By: Constantine Steinberg MD 05/25/18 0939 1243 1507 Constantine Steinberg MD /nt
--- NOTE | ~2018-05-20 | EKG ---
[address] [address] ELECTROCARDIOGRAM REPORT Name: PARRAROD Room #: 170-2 ADM IN M.R.#: [id number] Admission: 05/20/18 Attend Phys: Peter Downs Discharge: Date of : 42 Report #: [id number] THIS REPORT FOR: //name// [facility] ED Test Date: 2018-05-20 Test Time: 13:49:01 Pat Name: ROD PARRA Department: Room: 170 Gender: F Forensic Locksmith: NICHOLAS : 1940 Requested By: Dick Aranda Order Number: [id number] MD: Justin Fleming Measurements Intervals [place] Rate: 97 P: 24 CO: 176 QRS: -57 QRSD: 95 T: 31 QT: 344 QTc: 437 Interpretive Statements Sinus rhythm Abnormal R-wave progression, late transition Inferior infarct, old Compared to ECG 11/23/2017 14:13:54 Poor R-wave progression no longer present Myocardial infarct finding still present Electronically Signed On 05-20-2018 17:05:07 CDT by Justin Fleming [email or web address] <ELECTRONICALLY SIGNED> By: Justin Fleming MD 05/20/18 1705 1349 1349 Justin Fleming MD /EPI
[2018-05-20 13:46] VITALS: BP 104/67
[~2018-05-20 13:46] MED LIST changes: +NORCO 10-325 T1 EACH PO; +PERCOCET 10-321 EACH PO
[2018-05-20 14:31] LABS: ABSOLUTE NEUTROPHILS 10.5 thou/uL (1.4-8.2); BASOPHILS 0.9 % (0.0-2.0); EOSINOPHILS 0.3 % (0.0-3.0); HEMATOCRIT 37.2 % (37.0-47.0); HEMOGLOBIN 12.6 gm/dL (12.0-15.0); LYMPHOCYTES 9.8 % (24.0-44.0); MCH 30.6 pg (26.0-34.0); MCHC 33.8 g/dL (28.0-37.0); MCV 90.4 fL (80.0-100.0); MONOCYTES 5.8 % (1.0-8.0); PLATELET COUNT 245 thou/uL (150-400); POLYS 83.2 % (36.0-66.0); RBC 4.12 mil/uL (4.20-5.00); RDW 17.2 % (10.5-14.5); WBC 12.6 thou/uL (4.0-11.0)
[2018-05-20 14:34] LABS: ANION GAP 8 mmol/L (7-16); BUN 16 mg/dL (7-18); CALCIUM 9.2 mg/dL (8.5-10.1); CHLORIDE 103 mmol/L (98-107); CO2 27 mmol/L (21-32); CREATININE 1.2 mg/dL (0.6-1.0); GLUCOSE 146 mg/dL (74-106); POTASSIUM 4.1 mmol/L (3.5-5.1); SODIUM 138 mmol/L (136-145)
[2018-05-20 14:43] LABS: TROPONIN-I <0.06 ng/mL (<0.06)
[2018-05-20 16:00] LABS: URINE BILIRUBIN NEGATIVE (Negative); URINE BLOOD TRACE (Negative); URINE CLARITY CLOUDY; URINE COLOR YELLOW; URINE GLUCOSE-RANDOM* NEGATIVE (Negative); URINE KETONES NEGATIVE (Negative); URINE PROTEIN (DIPSTICK) NEGATIVE (Negative); URINE SPECIFIC GRAVITY 1.025 (1.005-1.035); URINE UROBILINOGEN 0.2 E.U./dl (0.2-1.0)
[2018-05-20 16:02] LABS: URINE LEUKOCYTES-REFLEX 1+ (Negative); URINE NITRITE-REFLEX POSITIVE (Negative)
[2018-05-20 16:05] LABS: BACTERIA-REFLEX >30 Many /HPF (None Seen); CASTS None Seen /LPF (None Seen); CRYSTALS None Seen /LPF (None Seen); SQUAMOUS 4-10 Moderate /LPF (0-3); URINE RBC None Seen /HPF (0-2); URINE WBC-REFLEX 6-15 Few /HPF (0-5)
[2018-05-20 17:04] VITALS: BP 118/58
[2018-05-20 19:30] VITALS: BP 132/50
[2018-05-21 07:39] VITALS: BP 110/62
[2018-05-21 16:30] VITALS: BP 108/51
[2018-05-21 18:36] VITALS: BP 137/64
[2018-05-21 19:24] VITALS: BP 122/63
[2018-05-22 07:26] LABS: HEMATOCRIT 32.7 % (37.0-47.0); HEMOGLOBIN 10.9 gm/dL (12.0-15.0); MCH 30.5 pg (26.0-34.0); MCHC 33.5 g/dL (28.0-37.0); MCV 90.9 fL (80.0-100.0); RBC 3.59 mil/uL (4.20-5.00); RDW 17.1 % (10.5-14.5); WBC 5.9 thou/uL (4.0-11.0)
[2018-05-22 07:39] LABS: CALCIUM 9.1 mg/dL (8.5-10.1); POTASSIUM 4.1 mmol/L (3.5-5.1)
[2018-05-22 08:13] VITALS: BP 115/62
[2018-05-22 19:46] VITALS: BP 127/70
[2018-05-23 08:16] VITALS: BP 113/67
[2018-05-23 20:03] VITALS: BP 122/63
[2018-05-24 07:15] VITALS: BP 183/87
[2018-05-24 07:20] VITALS: BP 122/75
[2018-05-24 09:56] VITALS: BP 122/75
[2018-05-24] MEDS ORDERED: CEFUROXIME500 MG PO (12:16)
== END 2018-05-24 15:38 | disposition home health service (06) | DRG 690 ==
LOC: ER 13:46 → 4E 16:36 → EROBS 16:36 → 4E 18:12 → SICU 05-21 18:30 → ENTRNSPT 05-24 15:03 → EDTRNSPTSTS 05-24 15:27 → SICU 05-24 15:38
PROVIDERS: Emergency Medicine; Internal Medicine Geriatric Medicine
DX: N39.0 Urinary tract infection, site not specified (principal); R29.6 Repeated falls; Z96.642 Presence of left artificial hip joint; I48.91 Unspecified atrial fibrillation; G89.29 Other chronic pain; M54.9 Dorsalgia, unspecified; E03.9 Hypothyroidism, unspecified; Z96.651 Presence of right artificial knee joint; G72.9 Myopathy, unspecified; Z79.899 Other long term (current) drug therapy; Z79.01 Long term (current) use of anticoagulants
CPT/HCPCS: 10084; 15000

== ENCOUNTER → 2018-08-16 | Outpatient (CLI) | payer OTHER, BC ==
[~2018-08-16] MED LIST changes: +CEFUROXIME500 MG PO
== END ==
LOC: RAD 08:19
DX: M16.11 Unilateral primary osteoarthritis, right hip (principal); M47.816 Spondylosis without myelopathy or radiculopathy, lumbar region

== ENCOUNTER 2018-11-22 13:40 | Emergency (ER) | payer OTHER, BC ==
[~2018-11-22] VITALS: Ht 154.9 cm; Wt 70.3 kg
[2018-11-22 14:44] LABS: ABSOLUTE NEUTROPHILS 3.9 thou/uL (1.4-8.2); BASOPHILS 0.9 % (0.0-2.0); HEMATOCRIT 40.7 % (37.0-47.0); HEMOGLOBIN 13.7 gm/dL (12.0-15.0); LYMPHOCYTES 30.1 % (24.0-44.0); MCH 29.7 pg (26.0-34.0); MCHC 33.7 g/dL (28.0-37.0); MCV 88.3 fL (80.0-100.0); MONOCYTES 4.1 % (1.0-8.0); PLATELET COUNT 278 thou/uL (150-400); POLYS 62.9 % (36.0-66.0); RBC 4.61 mil/uL (4.20-5.00); RDW 16.8 % (10.5-14.5); WBC 6.2 thou/uL (4.0-11.0)
--- NOTE | 2018-11-22 14:50 | EKG ---
[place] [address] [place] [address] ELECTROCARDIOGRAM REPORT Name: ROD PARRA Room #: REG MIREILLE Sarmiento#: [id number] ������������������ Admission: 11/22/18 ������������������ Attend Phys: Discharge: ������������������ Date of : 42 Report #: [id number] ����������������������������������������������������������������� [id number] THIS REPORT FOR: //name// [facility] ED Test Date: 2018-11-22 Test Time: 14:46:01 Pat Name: ROD PARRA Department: Room: Gender: F Novelties Sales Representative: NICHOLAS : 1940 Requested By: Dolores Adams Order Number: [id number] MD: Justin Fleming Measurements Intervals [place] Rate: 77 P: 20 MT: 186 QRS: -44 QRSD: 88 T: 35 QT: 391 QTc: 443 Interpretive Statements Sinus rhythm Left axis deviation Abnormal R-wave progression, late transition Compared to ECG 05/20/2018 13:49:01 Left-axis deviation now present Myocardial infarct finding no longer present Electronically Signed On 11-22-2018 14:50:31 CDT by Justin Fleming [email or web address] ��������������������������������������������� <ELECTRONICALLY SIGNED> ���������������������������������������� By: Justin Fleming MD ��������������������������������������������� 11/22/18 1450 1446 1446 Justin Fleming MD /SRIRAM
[2018-11-22 14:51] LABS: CALCIUM 9.2 mg/dL (8.5-10.1); CREATININE 1.2 mg/dL (0.6-1.0); POTASSIUM 3.5 mmol/L (3.5-5.1)
[2018-11-22 14:57] LABS: ALBUMIN 3.3 g/dL (3.4-5.0); DIRECT BILIRUBIN 0.2 mg/dL (<0.1-0.3); TOTAL PROTEIN 7.5 g/dL (6.4-8.2)
[2018-11-22 17:25] LABS: URINE BILIRUBIN NEGATIVE (Negative); URINE BLOOD NEGATIVE (Negative); URINE CLARITY CLEAR; URINE COLOR YELLOW; URINE GLUCOSE-RANDOM* NEGATIVE (Negative); URINE KETONES NEGATIVE (Negative); URINE LEUKOCYTES-REFLEX NEGATIVE (Negative); URINE NITRITE-REFLEX NEGATIVE (Negative); URINE PROTEIN (DIPSTICK) NEGATIVE (Negative); URINE SPECIFIC GRAVITY 1.015 (1.005-1.035)
[2018-11-22] MEDS ORDERED: KRISTALOSE20 GM PO (18:48)
[2018-11-22 19:21] VITALS: BP 126/74
== END 2018-11-22 19:15 | disposition home or self-care (01) ==
LOC: ER 13:40
PROVIDERS: Emergency Medicine
DX: R10.13 Epigastric pain (principal); M25.551 Pain in right hip; I48.91 Unspecified atrial fibrillation; G89.29 Other chronic pain; M54.9 Dorsalgia, unspecified; M19.90 Unspecified osteoarthritis, unspecified site; E03.9 Hypothyroidism, unspecified; Z96.651 Presence of right artificial knee joint; Z96.642 Presence of left artificial hip joint

== ENCOUNTER 2019-07-24 09:04 | Inpatient (IN) | payer OTHER, BC ==
[~2019-07-24] VITALS: Ht 154.9 cm; Wt 67.9 kg
[~2019-07-24 09:04] MED LIST changes: +KRISTALOSE20 GM PO
[2019-07-24 09:06] VITALS: BP 125/66
[2019-07-24 09:52] LABS: ABSOLUTE NEUTROPHILS 7.4 thou/uL (1.4-8.2); BASOPHILS 0.5 % (0.0-2.0); HEMATOCRIT 42.9 % (37.0-47.0); HEMOGLOBIN 14.1 gm/dL (12.0-15.0); LYMPHOCYTES 15.4 % (24.0-44.0); MCH 29.2 pg (26.0-34.0); MCHC 32.9 g/dL (28.0-37.0); MCV 88.8 fL (80.0-100.0); POLYS 80.1 % (36.0-66.0); RBC 4.83 mil/uL (4.20-5.00); RDW 15.6 % (10.5-14.5); WBC 9.9 thou/uL (4.0-11.0)
[2019-07-24 09:56] LABS: URINE BILIRUBIN NEGATIVE (Negative); URINE BLOOD NEGATIVE (Negative); URINE CLARITY CLEAR; URINE COLOR YELLOW; URINE GLUCOSE-RANDOM* NEGATIVE (Negative); URINE KETONES NEGATIVE (Negative); URINE LEUKOCYTES-REFLEX NEGATIVE (Negative); URINE NITRITE-REFLEX NEGATIVE (Negative); URINE PROTEIN (DIPSTICK) NEGATIVE (Negative); URINE UROBILINOGEN 0.2 E.U./dl (0.2-1.0)
[2019-07-24 10:02] LABS: AMP/METHAMP Negative (Negative); BARBITURATES Negative (Negative); BENZODIAZEPINES POSITIVE (Negative); COCAINE Negative (Negative); METHADONE Negative (Negative); OPIATES Negative (Negative); PCP Negative (Negative)
[2019-07-24 10:43] LABS: PLATELET COUNT 259 thou/uL (150-400)
--- NOTE | 2019-07-24 13:00 | EKG ---
[place] [address] [facility] [place] [address] ELECTROCARDIOGRAM REPORT Name: ROD PARRA Room #: 170-1 ADM IN M.R.#: [id number] Admission: 07/24/19 Attend Phys: Peter Downs Discharge: Date of : 42 Report #: [id number] THIS REPORT FOR: //name// [facility] ED Test Date: 2019-07-24 Test Time: 10:14:30 Pat Name: ROD PARRA Department: Room: 170 Gender: F Maintenance Shop Laborer: RINA : 1940 Requested By: Dick Aranda Order Number: [id number] MD: Ousmane June Measurements Intervals [place] Rate: 77 P: 54 DC: 201 QRS: -35 QRSD: 98 T: 20 QT: 401 QTc: 454 Interpretive Statements Sinus rhythm Left axis deviation Abnormal R-wave progression, late transition Compared to ECG 11/22/2018 14:46:01 No significant changes Electronically Signed On 07-24-2019 13:00:24 SERVER CASHIER by Ousmane June [email or web address] <ELECTRONICALLY SIGNED> By: Ousmane June MD, [facility] 07/24/19 1300 1014 101 Ousmane June MD, [facility] /EPI
[2019-07-24 14:00] VITALS: BP 135/64
--- NOTE | 2019-07-24 17:32 | NUR ---
PATIENT ARRIVED FROM ED AT 1553, ALERT AND ORIENTED TO SELF, SON AT BEDSIDE. ASSESMENT COMPLETED. AND NEW POC INTIATED. DR GUPTA NOTIFIED. AND WILL CONTNUE WITH POC.
[2019-07-24 19:25] VITALS: BP 106/50
[2019-07-25] VITALS (14 sets, daily range): BP systolic 102–149; BP diastolic 47–82
--- NOTE | 2019-07-25 04:15 | NUR ---
ASSUMED PT CARE AT 1900. VSS, PT A&O TO SELF AT THE START OF THE SHIFT. PT GRADUALLY PROGRESSED WITH HER OREINTATION THE NIGHT WENT BY. PT WAS A&0X4 THIS AM. PT WAS STABLE ALL NIGHT, COMPLAINED OF PAIN THIS AM, ALONSO CRAWFORD NOTIFIED, PERCOSET 5 Q4 PRN WAS ORDERED. PT ASKED WHY SHE WAS BROUGHT HERE, I INFORMED HER THE INFO ON THE ED DOCUMENTATION FORM. PT DENIED USING EXCESS AMOUNT OF PAIN PILLS, SHE INFACT SAID THAT SHE WAS OUT OF HER RX AND WAS MEANT TO FILL IT TODAY. PT BEEN RESTING SINCE LAST ROUND, WILL CONTINUE TO MONITOR PER POC.
--- NOTE | 2019-07-25 08:15 | EKG ---
[address] [address] ELECTROCARDIOGRAM REPORT Name: FILEMON PARRARUSSEL Schmitt Room #: 202-P ADM IN M.R.#: [id number] Admission: 07/24/19 Attend Phys: Peter Downs Discharge: Date of : 41 Report #: [id number] THIS REPORT FOR: //name// [facility] Test Date: 2019-07-25 Test Time: 07:24:26 Pat Name: ROD PARRA Department: Room: 202 P Gender: F Director Of Informatics: Sabrina STRONG : 1940 Requested By: Ousmane June Order Number: [id number] MD: Justin Fleming Measurements Intervals [place] Rate: 74 P: 38 [place]: 175 QRS: -33 QRSD: 92 T: 20 QT: 387 QTc: 430 Interpretive Statements Sinus rhythm Left axis deviation Compared to ECG 07/24/2019 10:14:30 No significant changes Electronically Signed On 07-25-2019 8:15:39 LANDFILL GAS COLLECTION OPERATOR by Justin Fleming [email or web address] <ELECTRONICALLY SIGNED> By: Justin Fleming MD 07/25/19814 3 3 Justin Fleming MD /SRIRAM
[2019-07-25 09:14] LABS: CALCIUM 9.3 mg/dL (8.5-10.1); POTASSIUM 3.7 mmol/L (3.5-5.1)
[2019-07-25 09:19] LABS: CHOLESTEROL 175 mg/dL (<200); HDL CHOLESTEROL 55 mg/dL (>40); LDL CHOLESTEROL 109 mg/dL (<100); TC:HDL 3.2 Ratio (Not establshd); TRIGLYCERIDE 57 mg/dL (<150); VLDL 11 mg/dL (<40)
--- NOTE | 2019-07-25 09:50 | NUR ---
PT IV TO RAC INFLITRATED. D/C'D AND NEW IV TO RIGHT HAND
--- NOTE | 2019-07-25 12:30 | CATHLAB ---
[facility] [address] [place] [address] INVASIVE PROCEDURE REPORT Name: ROD PARRA Room #: 202-P [facility] IN ..#: [id number] Admission: 07/24/19 Attend Phys: Derick Real Discharge: Date of : 41 Report #: [id number] THIS REPORT FOR: //name// APPROVED REPORT Study performed: 07/25/2019 07:54:27 Patient Details Patient Status: In-Patient Room #: The patient is a 78 year-old female Event Personnel Scott Silva Rn Emergency Room, Bam Clark RN, Lily Matthews RN RN, Andree Cherry RTR Scrub, Dolores Min RTR Scrub, Constantine Grider Monitor Procedures Performed Left Heart Cath w/or w/o Coronaries [id number] [facility] FFR [id number] FFR Indication Non-STEMI , Dyspnea, The patient was admitted with a change in mental status, found to have an abnormal troponin level. Risk Factors Obesity, Hypercholesterolemia, Coronary Artery DiseaseHypertension Previous Procedures/Diagnoses Previous PCI Procedure Narrative The Right Groin^ was infiltrated with 1% Lidocaine subcutaneous anesthesia. A PINNACLE 4FR Sheath #[id number] sheath was inserted into the RFA^. Coronary angiography was performed using coronary diagnostic catheters. The right coronary system was accessed and visualized with a JR4 catheter. The left coronary system was accessed and visualized with a JL4 catheter. The left ventricle was accessed and visualized with a PIGTAIL catheter. Left ventricular/Aortic Valve gradient assessed via catheter pullback. Left ventriculogram was performed in 30 degree projection. The patient tolerated the procedure well and there were no complications associated with the procedure. Intraoperative Conscious Sedation [facility] [address] [place] [address] INVASIVE PROCEDURE REPORT Name: ROD PARRA Room #: 202-P [facility] IN [facility].#: [id number] Admission: 07/24/19 Attend Phys: Derick Real Discharge: Date of : 41 Report #: [id number] Sedation start time: 8.15 Case end Time: 9.08 Fentanyl 100 mcg Versed 1 mg Fluoro Time: 6.40 minutes Dose: DAP 6991.00 cGycm2 1775 mGy Contrast Type and Amount: Visipaque 130 ml Coronary Angiography The patient's coronary anatomy is right dominant. Diagnostic Cath Left Main This is a large caliber vessel, patent with no flow-limiting lesions. LAD This is a moderate size caliber vessel, traversing the anterior wall, wrapping around the apex and terminating at the mid inferior wall. There is a borderline stenosis, 60% in the proximal LAD segment. FFR was performed using a 6 Romanian system, 0.95. Diagonal 1 This is a small-caliber vessel, patent with no flow-limiting lesions. Circumflex This is a patent vessel, with no flow-limiting lesions. OM1 There is a moderate stenosis in the proximal segment, 50-60%. Right Coronary This is a small to moderate size caliber vessel with a previously placed stent in the proximal segment. Within the distal portion of the stent, there is a moderate restenosis, 50%. R PDA This is a small-caliber vessel, patent with no flow-limiting lesions. RPLV This is a small-caliber vessel with a severe stenosis in the proximal segment, 70%. Recommend medical therapy. Left Ventriculography The left ventricle is mildly dilated in size with normal contractility. The left ventricular ejection fraction is estimated to be 55-60%. Hemodynamics The aortic pressure is 143/64 mmHg with a mean of 84 mmHg. The left ventricular pressure is 150/11 mmHg with a mean of mmHg. The left ventricular end diastolic pressure is 20 mmHg. There was no gradient across the aortic valve upon pullback. Pullback from the left ventricle to the aorta revealed no gradient across the aortic valve. [facility] [address] [place] [address] INVASIVE PROCEDURE REPORT Name: ROD PARRA Room #: 202-P [facility] IN M.R.#: [id number] Admission: 07/24/19 Attend Phys: Derick Real Discharge: Date of : 42 Report #: [id number] PCI Technique Lesion Percutaneous coronary intervention was performed on the Unspecified. A VISTA 6FR JL4 #[id number] Guide Catheter was used to engage the ostium. A Aeris Pressure Wire 175 cm [id number] Interventional Guidewire was used to cross the lesion. BALLOON DILATION PRE FFR-1.0 POST FFR 0.95 Conclusion 1. There is a borderline stenosis in the proximal LAD, with a nonischemic FFR. Recommend medical therapy. 2. Moderate lesions in OM1 and RCA. 3. 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 Medical therapy is recommended. 4. Normal LV systolic function. 5. Recommend aggressive risk factor management. <ELECTRONICALLY SIGNED> By: Scott Silva MD 07/25/19 1230 1230 1230 Scott Silva MD /INF
--- NOTE | 2019-07-25 15:06 | NUR ---
ASSUMED CARE AT SHIFT CHANGE, ALERT AND ORIENTED X4. CATHED TODAY, RT GRION SITE INTACT AND VSS. SR ON THE MONITOR. C/O PAIN RT HIP AND MEDICATED NEEDED FOR PAIN, AND WILL CONTINUE WITH POC.
--- NOTE | 2019-07-25 15:32 | 2DMMODE ---
[facility] [address] [place] [address] 2 D/M-MODE ECHOCARDIOGRAM Name: AIDAROD Room #: 202-P [facility] IN ..#: [id number] Admission: 07/24/19 Attend Phys: Derick Real Discharge: Date of : 41 Report #: [id number] THIS REPORT FOR: //name// APPROVED REPORT Study performed: 07/25/2019 14:51:33 EXAM: Comprehensive 2D, Doppler, and color-flow Echocardiogram Patient Location: Bedside Room #: 202 Status: routine BSA: 1.66 HR: 70 bpm BP: 106/47 mmHg Rhythm: NSR Other Information Study Quality: Adequate Indications Atrial Fibrillation Elevated Troponin 2D Dimensions IVSd: 12.71 (7-11mm) LVOT Diam: 21.00 (18-24mm) LVDd: 37.36 mm PWd: 13.09 (7-11mm) Ascending Ao: 26.86 (22-36mm) LVDs: 25.07 (25-40mm) Aortic Root: 26.57 mm LV Single Plane 4CH: 59.86 % LV Single Plane 2CH: 60.22 % Biplane EF: 59.8 % Volumes Left Atrial Volume (Systole) Single Plane 4CH: 36.67 mL Single Plane 2CH: 54.92 mL LA ESV Index: 32.00 mL/m2 Aortic Valve AoV Peak David.: 1.69 m/s AO Peak Gr.: 11.42 mmHg LVOT Max P.11 mmHg LVOT Max V: 1.01 m/s ASHLEY Vmax: 2.09 cm2 Mitral Valve [facility] [address] [place] [address] 2 D/M-MODE ECHOCARDIOGRAM Name: ROD PARRA Room #: 202-P [facility] IN [facility].#: [id number] Admission: 07/24/19 Attend Phys: Derick Real Discharge: Date of : 42 Report #: [id number] E/A Ratio: 0.7 MV Decel. Time: 304.38 ms MV E Max David.: 0.58 m/s MV A David.: 0.85 m/s MV PHT: 88.27 ms IVRT: 65.74 ms TDI E/Lateral E': 9.67 E/Medial E': 9.67 Medial E' David.: 0.06 m/s Lateral E' David.: 0.06 m/s Pulmonary Valve PV Peak David.: 0.97 m/s PV Peak Gr.: 3.77 mmHg Tricuspid Valve TR Peak David.: 2.23 m/s RAP Estimate: 7.00 mmHg TR Peak Gr.: 19.88 mmHg PA Pressure: 27.00 mmHg Left Ventricle The left ventricle is normal size. There is normal LV segmental wall motion. There is normal left ventricular wall thickness. Left ventricular systolic function is normal. The left ventricular ejection fraction is within the normal range. LVEF is 60-65%. Mild diastolic dysfunction is present (impaired relaxation pattern). Right Ventricle The right ventricle is normal size. The right ventricular systolic function is normal. Atria The left atrium size is normal. The right atrium size is normal. Aortic Valve The aortic valve is normal in structure. No aortic regurgitation is present. There is no aortic valvular stenosis. Mitral Valve The mitral valve is normal in structure. There is no mitral valve regurgitation noted. No evidence of mitral valve stenosis. Tricuspid Valve The tricuspid valve is normal in structure. Trace tricuspid [facility] [address] [place] [address] 2 D/M-MODE ECHOCARDIOGRAM Name: ROD PARRA Oskar Room #: 202-P [facility] IN ..#: [id number] Admission: 07/24/19 Attend Phys: Derick Real Discharge: Date of : 42 Report #: [id number] regurgitation. Pulmonary artery pressure is 27 mmHg. Pulmonic Valve The pulmonary valve is normal in structure. Mild pulmonic regurgitation. Great Vessels The aortic root is normal in size. The ascending aorta is normal in size. IVC is normal in size and collapses >50% with inspiration. Pericardium There is no pericardial effusion. <Conclusion> The left ventricle is normal size. There is normal left ventricular wall thickness. Left ventricular systolic function is normal. Mild diastolic dysfunction is present (impaired relaxation pattern). The right ventricle is normal size. The left atrium size is normal. The aortic valve is normal in structure. There is no mitral valve regurgitation noted. Trace tricuspid regurgitation. Pulmonary artery pressure is 27 mmHg. <ELECTRONICALLY SIGNED> By: Scott Silva MD 07/25/19 1532 153 153 Scott Silva MD /INF
[2019-07-26 00:31] VITALS: BP 126/54
--- NOTE | 2019-07-26 02:32 | NUR ---
A/O X 4.UP INDEPENDENTLY.COMPLAIN OF RIGHT HIP PAIN.OXYCODONE GIVEN.PT SLEEPING.RIGHT GROIN CLEAN,DRY AND INTACT;NO HEMATOMA NOR BLEEDING NOTED.MONITOR SHOWS SINUS RHYTHM,SINUS ARRYTHMIA.POC CONTINUED.
[2019-07-26 04:37] LABS: HEMATOCRIT 33.2 % (37.0-47.0); MCH 29.1 pg (26.0-34.0); MCHC 32.8 g/dL (28.0-37.0); MCV 88.6 fL (80.0-100.0); RBC 3.75 mil/uL (4.20-5.00); RDW 15.6 % (10.5-14.5)
[2019-07-26 04:43] LABS: HEMOGLOBIN 10.9 gm/dL (12.0-15.0)
[2019-07-26 04:47] LABS: CALCIUM 8.9 mg/dL (8.5-10.1)
[2019-07-26 05:33] VITALS: BP 124/49
[2019-07-26 07:54] VITALS: BP 121/47
[2019-07-26 11:50] VITALS: BP 139/64
--- NOTE | 2019-07-26 13:47 | H ---
[facility] [place] [address] [place] [address] HISTORY AND PHYSICAL Name: ROD PARRA Room #: 202-P ADM IN M.R.#: [id number] Admission: 07/24/19 Attend Phys: Peter Downs Discharge: Date of : 42 Report #: [id number] THIS REPORT FOR: //name// CC: Derick Marte DATE OF SERVICE: 07/24/2019 CHIEF COMPLAINT: Confusion. HISTORY OF PRESENT ILLNESS: The patient is a 78-year-old female who came into the Emergency Room with her family with confusion. She was normal at bedtime on Thursday, but when they saw her Thursday morning they noted a change. She just complained of being a little short of breath and some diffuse pain. She was just generally confused and weaker than normal. She was assessed through ER and admitted with an elevated troponin with consideration of NSTEMI. She has had a cardiac catheterization today and is feeling improved. PAST MEDICAL HISTORY: AFib, chronic low back pain, hypertension, coronary artery disease with history of stent in 2006. PAST SURGICAL HISTORY: None. FAMILY HISTORY: Noncontributory. SOCIAL HISTORY: She lives at home. No chronic alcohol or tobacco use. ALLERGIES: None. MEDICATIONS: Percocet, Bumex, Levoxyl, Xarelto. REVIEW OF SYSTEMS: Denies headache, chest pain, shortness of breath, abdominal pain, nausea, vomiting, diarrhea, constipation, dysuria, syncope. PHYSICAL EXAMINATION: VITAL SIGNS: Temperature 36.4, pulse 71, respirations 18, blood pressure 147/72, O2 sat 96% on room air. GENERAL: She is awake and alert, in no distress, oriented to surroundings. HEAD AND NECK: Unremarkable. LUNGS: Clear. HEART: Regular. ABDOMEN: Soft, normoactive bowel sounds. EXTREMITIES: No edema. NEUROLOGIC: Motor strength 4/5 throughout. LABORATORY DATA: Pertinent findings are troponin up to 16. [facility] [address] [address] HISTORY AND PHYSICAL Name: ROD PARRA Room #: 202-P [facility] IN [facility]#: [id number] Admission: 07/24/19 Attend Phys: Peter Downs Discharge: Date of : 42 Report #: [id number] Cardiac catheterization reviewed. ASSESSMENT: 1. Non-ST elevation myocardial infarction. 2. Coronary artery disease. 3. Hypertension. 4. Acute metabolic encephalopathy due to #1. PLAN: Medical treatment is ongoing and she is post-catheterization today. We will assess her stability for early discharge, perhaps tomorrow, if she is stable. <ELECTRONICALLY SIGNED> By: Constantine Steinberg MD 07/26/19 1347 [id number] 1341 Constantine Steinberg MD /nt
[2019-07-26 16:37] VITALS: BP 138/71
--- NOTE | 2019-07-26 17:03 | NUR ---
ASSUMED CARE AT SHIFT CHANGE, ALERT AND ORIENTED X4. VSS AND SR ON THE MONITOR. MEDICATED FOR BACK PAIN NEEDED. PROGRESSING TOWARDS GOALS. PLAN: DISCHARGE HOME TOMORROW.
[2019-07-26 20:45] VITALS: BP 117/50
--- NOTE | 2019-07-27 03:28 | NUR ---
ASSESSMENTS CHARTED. MEDS CHARTED GIVEN. TOOK OVER CARE OF PATIENT AT 2300. PATIENT RESTING IN ROOM DURING SHIFT. C/O CHRONIC PAIN IN RT HIP 04/02, MED GIVEN CHARTED. PATIENT WENT TO REGISTERED ACCOUNT ADMINISTRATOR DURING DAY, NO INTERVENTIONS WERE DONE, PATIENT OFF BED REST PRIOR TO MY ARRIVAL. PLAN OF CARE IS FOR PATIENT TO RETURN HOME TODAY, BUT IF SHE STAYS SHE NEEDS TO HAVE HOME DIURETIC RESTARTED. PATIENT NEEDS TO TALK TO CM ABOUT HER [place] SCRIPT. SHE IS UNABLE TO AFFORD THE MEDICINE.
[2019-07-27 05:02] VITALS: BP 113/49
[2019-07-27 07:27] VITALS: BP 140/67
[2019-07-27 08:36] LABS: HEMATOCRIT 35.9 % (37.0-47.0); HEMOGLOBIN 11.8 gm/dL (12.0-15.0); MCH 28.8 pg (26.0-34.0); MCHC 32.7 g/dL (28.0-37.0); MCV 88.1 fL (80.0-100.0); RBC 4.08 mil/uL (4.20-5.00); RDW 15.4 % (10.5-14.5); WBC 5.9 thou/uL (4.0-11.0)
[2019-07-27 09:45] VITALS: BP 127/70
[2019-07-27 11:31] VITALS: BP 170/65
[2019-07-27] MEDS ORDERED: LEVO-T100 MCG PO ×2 (12:44→13:37)
[2019-07-27] MEDS ORDERED: ELIQUIS2.5 MG PO ×2 (12:50→13:35)
[2019-07-27] MEDS ORDERED: LEVO-T25 MCG PO (12:52)
[2019-07-27] MEDS ORDERED: DILTIAZEM ER180 M2 PO (12:54)
[2019-07-27] MEDS ORDERED: ROXICODONE5 M2 PO (12:55)
[2019-07-27] MEDS ORDERED: BUSPIRONE HCL5 MG PO (12:56)
[2019-07-27] MEDS ORDERED: LIPITOR40 MG PO (13:35)
[2019-07-27] MEDS ORDERED: ASPIR 8181 MG PO (13:35)
[2019-07-27] MEDS ORDERED: BUMEX2 MG PO (13:36)
[2019-07-27] MEDS ORDERED: KRISTALOSE20 GM PO (13:36)
[2019-07-27 13:53] VITALS: BP 170/65
--- NOTE | 2019-07-27 14:22 | NUR ---
PATIENT TO [place] HOME TODAY. SHE REPORTS PREV [place] SCRIPT AND COST $500. SHE REPORTS HER PHARMACY ENCOURAGED HER TO GO TO [place] AND THEY WERE SUPPLING FOR FREE. SHE REPORTS SHE F/U WITH TRUCKER HAND AT [facility] WHO REPORTS SHE DIDNT NEED TO REMAIN ON BLOOD THINNER. LATER SHE SAW DR FARMER WHO STATED SHE DOES NEED TO CONT SHE HAS AFIB. PATIENT REPORTS HER PLAN IS TO FOLLOW DR NUNEZ AT [place]. PATIENT TO REC SCRIPT FOR PAM AT [place]. GAVE PATIENT COPAY CARE, AND NUMBER FOR PAM FOR ASSISTANCE. RN CALLING CARDIOLOGY OFFICE TO BRING SAMPLES. NO FURTHER NEEDS
--- NOTE | 2019-07-27 15:11 | NUR ---
ASSESMENT DOCUMENTED, VSS AND AFEBRILE. PATIENT BP RECHECKED AT 945 127/70. DISCHARGE AND MEDICATIONS INSTRUCTIONS GIVEM TO PATIENT AND SON. AND PATIENT DISCHARGED HOME.
--- NOTE | 2019-07-28 09:45 | D ---
[facility] [place] [address] DISCHARGE SUMMARY Name: ROD PARRA Room #: 202-P [facility] IN M.R.#: [id number] Admission: 07/24/19 Attend Phys: Peter Downs Discharge: 07/27/19 Date of : 42 Report #: [id number] THIS REPORT FOR: //name// CC: Derick Marte FINAL DIAGNOSES: 1. Non-ST elevation myocardial infarction. 2. Coronary artery disease. 3. Metabolic encephalopathy due to the above. 4. Paroxysmal atrial fibrillation. 5. Chronic anticoagulation with Eliquis. 6. Hypothyroidism. 7. Osteoarthritis. 8. Debility. HOSPITAL COURSE: The patient was admitted with altered mental status. Workup revealed significantly elevated troponin levels without signs of EKG changes. She was taken to the cardiac catheterization lab which revealed borderline stenosis of the proximal LAD with preserved left ventricular ejection fraction. There was severe stenosis in a small vessel, the RPL. Currently, she is recommended for medical therapy with statin. Aspirin was discontinued as she is on Eliquis for atrial fibrillation. Her mental status returned to baseline and she had no other interval complications. DISPOSITION: She is discharged to home with cardiac diet and activity as tolerated. Followup with Dr. Marte and Dr. Silva within 2 weeks. DISCHARGE MEDICATIONS: Lipitor 40 mg, aspirin 81 mg, Percocet 10 mg, lactulose, Bumex 10 mg every other day, Levoxyl 100 mcg, Eliquis 2.5 mg daily. She is to discontinue diltiazem, oxycodone, BuSpar and Xarelto. <ELECTRONICALLY SIGNED> By: Constantine Steinberg MD 07/28/19 0945 [id number] [id number] Constantine Steinberg MD /nt
--- NOTE | 2019-07-29 09:29 | HC ---
[facility] [place] [address] CONSULTATION Name: ROD PARRA Room #: 202-P [facility] IN ..#: [id number] Admission: 07/24/19 Attend Phys: Peter Downs Discharge: 07/27/19 Date of : 42 Report #: [id number] THIS REPORT FOR: //name// CC: Derick Marte DATE OF SERVICE: 07/24/2019 REASON FOR CONSULTATION: Elevated troponin. HISTORY OF PRESENT ILLNESS: The patient is a 78-year-old woman with history of altered mental status, paroxysmal atrial fibrillation and hypothyroidism, on replacement. She was brought to the Emergency Department by her son who found her confused and weak. Troponin was ordered, which was elevated. I was asked to see her in this regard. She denies chest pain, pressure or ischemic type symptoms. No heart failure symptoms including orthopnea, paroxysmal nocturnal dyspnea, or lower extremity edema. Her presenting EKG was entirely normal. No prior heart disease. She does report that she takes a blood thinner, although she has not been on Xarelto due to its prohibitive cost. HOME MEDICATIONS: Reported medicines include Xarelto 10 mg daily, levothyroxine 25 mcg daily, Bumex 2 mg every other day and Percocet. PAST MEDICAL HISTORY: Notable for left hip replacement in 2005, chronic pain syndrome, hypothyroidism, right knee replacement in 2017. ALLERGIES: No known drug allergies. SOCIAL HISTORY: She is nonsmoker, nondrinker. FAMILY HISTORY: Unremarkable for premature coronary artery disease. She lives with her son. REVIEW OF SYSTEMS: All systems negative except as that noted above. PHYSICAL EXAMINATION: GENERAL: Reveals an elderly woman who is alert. She is oriented to name and place only. VITAL SIGNS: Blood pressure is 104/74, heart rate of 78 and regular. She is afebrile. HEENT: There are neither xanthelasma, subcutaneous xanthomata, oral mucosal or digital cyanosis or kyphoscoliosis present. CHEST: Clear to auscultation and percussion. CARDIAC: Regular rate and rhythm with normal S1, S2. No murmurs or rubs. ABDOMEN: Soft and nontender. EXTREMITIES: Without cyanosis, clubbing or edema. Radial pulses are 2+. NEUROLOGIC: She is alert with a nonfocal exam. [address] [address] CONSULTATION Name: ROD PRARA Room #: 202-P [facility] IN .R.#: [id number] Admission: 07/24/19 Attend Phys: Peter Downs Discharge: 07/27/19 Date of : 42 Report #: [id number] LABORATORY DATA: EKG sinus rhythm with first degree AV block, otherwise normal tracing. Sodium is 143, potassium 3.5, creatinine 1.2, troponin 26. Tox screen notable for benzodiazepine. White count is 9.9, hemoglobin 14, hematocrit 42, platelet count 259. Chest x-ray demonstrates left atelectasis versus infiltrate. Head CT is normal. IMPRESSION: 1. Elevated troponin in the absence of symptoms or electrocardiographic abnormalities. 2. History of hypothyroidism. 3. History of paroxysmal atrial fibrillation. 4. Chronic back and hip pain. RECOMMENDATIONS: 1. Serial cardiac enzymes. 2. Echocardiogram with Doppler. 3. Low dose aspirin for now. 4. Further thoughts and plans will be forthcoming based on this evaluation. Thank you for asking me to participate in the patient's care. <ELECTRONICALLY SIGNED> By: Ousmane June MD, [facility] 07/29/19 0929 1235 [id number] Ousmane June MD, FAC /nt
== END 2019-07-27 15:14 | disposition home or self-care (01) | DRG 250 ==
LOC: ER 09:04 → EROBS 12:29 → 2N 12:29 → ENTRNSPT 07-27 14:54 → EDTRNSPTSTS 07-27 15:01 → 2N 07-27 15:14
PROVIDERS: Emergency Medicine; Internal Medicine Cardiovascular Disease; Nurse Practitioner Adult Health; ADMIT Internal Medicine
PROC: B215YZZ Fluoroscopy of Left Heart using Other Contrast (ICD-10-PCS; principal; 2019-07-25)
PROC: 4A033BC Measurement of Arterial Pressure, Coronary, Percutaneous Approach (ICD-10-PCS; principal; 2019-07-25)
PROC: 4A023N7 Measurement of Cardiac Sampling and Pressure, Left Heart, Percutaneous Approach (ICD-10-PCS; principal; 2019-07-25)
PROC: 02703ZZ Dilation of Coronary Artery, One Artery, Percutaneous Approach (ICD-10-PCS; principal; 2019-07-25)
PROC: B211YZZ Fluoroscopy of Multiple Coronary Arteries using Other Contrast (ICD-10-PCS; principal; 2019-07-25)
DX: I21.4 Non-ST elevation (NSTEMI) myocardial infarction (principal); G93.41 Metabolic encephalopathy; Z96.642 Presence of left artificial hip joint; G89.29 Other chronic pain; M54.9 Dorsalgia, unspecified; E03.9 Hypothyroidism, unspecified; Z96.651 Presence of right artificial knee joint; R79.89 Other specified abnormal findings of blood chemistry; M16.11 Unilateral primary osteoarthritis, right hip; I48.0 Paroxysmal atrial fibrillation; M25.559 Pain in unspecified hip; I25.10 Atherosclerotic heart disease of native coronary artery without angina pectoris; Z79.01 Long term (current) use of anticoagulants; Z95.5 Presence of coronary angioplasty implant and graft; Z79.82 Long term (current) use of aspirin; Z79.899 Other long term (current) drug therapy
CPT/HCPCS: 10081